=== PATIENT | male | born 1980 | race Caucasian/White ===

== ENCOUNTER 2020-06-14 11:52 | Emergency (ER) | payer OTHER ==
[2020-06-14] MEDS ORDERED: methylPREDNISolone NA SUCC 125 MG/2 ML VIAL ONE (12:00)
[2020-06-14] MEDS ORDERED: FAMOTIDINE 20 MG/50 ML IVPB 20 MG/50 ML MG IVPB ONE (12:01)
[2020-06-14 12:25] VITALS: TEMP 97.8; BMI 35.2
[2020-06-14] MEDS ORDERED: FAMOTIDINE 20 MG/50 ML IVPB 20 MG in PREMIX 50 IVPB ONE (12:29)
[2020-06-14] MEDS ORDERED: methylPREDNISolone NA SUCC 125 MG/2 ML VIAL IVPB ONE (12:29)
--- NOTE | 2020-06-14 12:34 | PDOC ---
History of Present Illness - General Chief Complaint: Allergic Reaction Stated Complaint: ALLERGIC REACTION Time Seen by Provider: 06/14/20 12:12 History Source: Patient Exam Limitations: No Limitations - History of Present Illness Initial Comments: 06/14/20 12:29 40y M no pmhx presents with complaint of bee sting. 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 He began to develop diffuse itching and an urticarial rash on his arm shoulder back. He began to feel little lightheaded, he denies any associated shortness of breath, chest pain, abdominal pain, vomiting. Denies Voice changes. No known allergies to bee stings however this is the third bee sting he has had this month, Has not had any bee stings prior to that for many years. He took 50 mg of Benadryl orally prior to arrival. Past History - Medical History Allergies/Adverse Reactions: Allergies Allergy/AdvReac Type Severity Reaction Status Date / Time No Known Allergies Allergy Verified 06/14/20 11:53 Home Medications: Ambulatory Orders Diphenhydramine HCl [Benadryl Capsules -] 50 mg PO TID #14 capsule 06/14/20 Epinephrine [Epipen] 0.3 mg IJ ONCE PRN #1 box 06/14/20 predniSONE [Deltasone -] 40 mg PO DAILY #8 tablet 06/14/20 COPD: No - Psycho-Social/Smoking History Smoking History: Never smoked Have you smoked in the past 12 months: No Information on smoking cessation initiated: No - Substance Abuse Hx (Audit-C & DAST Scrn) How often the patient has a drink containing alcohol: Never Score: In Men: 4 or > Positive; In Women: 3 or > Positive: 0 Screen Result (Pos requires Nsg. Audit-10AR): Negative In the last yr the pt used illegal drug/Rx for NonMed reason: No Score: Yes response is considered Positive: 0 Screen Result (Positive result requires Nsg. DAST-10): Negative Review of Systems - Review of Systems Able to Perform ROS?: Yes Comments:: 06/14/20 12:32 ROS: My constitutional - no reported Fever, Chills, HEENT: no reported vision changes, sore throat Respiratory: no reported cough, sob, hemoptysis Cardiac: no reported chest pain, palpitations, light headedness, leg swelling Abd/GI: no reported abd pain, nausea, vomiting, blood per rectum, melena, diarrhea : no reported dysuria, frequency, discharge Musculskelatal - no reported back pain, joint swelling skin - +rash,+ itching, no reported bruising, erythema, neurological: no reported headache, numbness, focal weakness, tingling, ataxia, hematologic: no reported easy bruising, easy bleeding Exam: GENERAL: The patient is awake, alert, and fully oriented, Nontoxic - in no acute distress. HEAD: Normocephalic, atraumatic. EYES: extraocular movements intact, sclera anicteric, conjunctiva clear. ENT: Normal voice, Moist mucous membranes, Pharynx symmetric, no voice change, no stridor NECK: Normal range of motion, supple LUNGS: Breath sounds equal, clear to auscultation bilaterally. No wheezes, no rhonchi, no rales. HEART: Regular rate and rhythm, normal S1 and S2 without murmur, rub or gallop. ABDOMEN: Soft, nontender, No guarding, no rebound. No CVA tenderness EXTREMITIES: Normal range of motion, no edema. NEUROLOGICAL: No facial assymetry, Normal speech, PSYCH: Normal mood, normal affect. SKIN: diffuse urticaria on his LUE/medial R forearm, neck, back *Physical Exam - Vital Signs Last Vital Signs Temp Pulse Resp BP Pulse Ox 97.8 F 112 H 20 127/82 98 06/14/20 11:52 06/14/20 11:52 06/14/20 11:52 06/14/20 11:52 06/14/20 11:52 Medical Decision Making - Medical Decision Making 06/14/20 12:34 Bee sting with cutaneous manifestations, no GI symptoms no signs of anaphylaxis or angioedema. Benadryl will give Solu-Medrol and Pepcid will reassess Pt noted To be slightly tachycardic will give fluids 06/14/20 13:38 pt feeling improved will dc with outpatint fu return precautions were discused I discussed the physical exam findings, ancillary test results and final diagnoses with the patient. I answered all of the patient's questions. The patient was satisfied with the care received and felt comfortable with the discharge plan and treatment plan. The patient will call their primary care physician within 24 hours to arrange follow-up and will return to the Emergency Department with any new, persistent or worsening symptoms. Discharge - Discharge Information Problems reviewed: Yes Clinical Impression/Diagnosis: Bee sting allergy Condition: Improved Disposition: HOME - Admission No - Follow up/Referral Referrals: [facility] [place] [facility] [place] [Provider Group] - Patient Discharge Instructions Patient Printed Discharge Instructions: DI for General Allergic Reactions Additional Instructions: Take the Prednisone and Benadryl as prescribed Keep the epipen on you in case you have a severe allergic reaction (any swelling in your mouth/lips, difficulty breathing or swallowing). Follow up with your primary care doctor for further evvaluation Print Language: CAMBODIAN - Post Discharge Activity
[2020-06-14 14:01] VITALS: BP 125/66; PULSE 76
== END 2020-06-14 13:55 | disposition home or self-care (01) ==
LOC: FER 11:52
PROC: 3E033NZ Introduction of Analgesics, Hypnotics, Sedatives into Peripheral Vein, Percutaneous Approach (ICD-10-PCS; principal; 2020-06-14)
PROC: 3E033GC Introduction of Other Therapeutic Substance into Peripheral Vein, Percutaneous Approach (ICD-10-PCS; 2020-06-14)
DX: T78.40XA Allergy, unspecified, initial encounter (principal)
CPT/HCPCS: 99284-25

== ENCOUNTER 2021-05-02 08:56 | Emergency (ER) | payer OTHER ==
[2021-05-02] MEDS ORDERED: predniSONE 20 MG TABLET (UD) PO ONE (08:59)
[2021-05-02] MEDS ORDERED: diphenhydrAMINE HCL 25 MG CAPSULE (FP) PO ONE (08:59)
[2021-05-02] MEDS ORDERED: predniSONE 10 MG TABLET (UD) ONE (08:59)
[2021-05-02] MEDS ORDERED: diphenhydrAMINE HCL 50 MG CAPSULE ONE (08:59)
[2021-05-02] MEDS ORDERED: predniSONE 20 MG TABLET (UD) ONE ×2 (09:00→09:01)
[2021-05-02 09:10] VITALS: TEMP 98.8; BMI 39.1
[2021-05-02 10:52] VITALS: BP 138/88; PULSE 90
== END 2021-05-02 11:10 | disposition home or self-care (01) ==
LOC: FER 08:56
DX: T63.441A Toxic effect of venom of bees, accidental (unintentional), initial encounter (principal)
CPT/HCPCS: 99283-25